=== PATIENT | male | born 1995 | race Caucasian/White ===

== ENCOUNTER 2016-12-20 14:21 | Inpatient (IN) ==
[2016-12-20] MEDS ORDERED: Tdap (ADACEL) Vaccine 0.5 ML IM ONE (14:39)
--- NOTE | 2016-12-20 14:45 | Emergency Department Note ---
Disposition Clinical Impression: Heroin abuse, Weakness of left leg, Acute kidney injury, Hyperkalemia Pneumonia Qualifiers: Pneumonia type: due to unspecified organism Laterality: left Lung location: upper lobe of lung Qualified Code(s): J18.1 - Lobar pneumonia, unspecified organism Rhabdomyolysis Qualifiers: Rhabdomyolysis type: non-traumatic Qualified Code(s): M62.82 - Rhabdomyolysis Disposition: Admitted As Inpatient Condition: Good Referrals: NONE,PCP [Primary Care Provider] - Forms: Work/School Release, ED Satisfaction Letter Time of Disposition: 17:39 Extremity Problem HPI - General Chief complaint: ED Extremity Problem,Nontraumatic Stated complaint: LEFT LEG NUMBNESS Time Seen by Provider: 12/20/16 14:28 Source: patient Limitations: no limitations Nursing Notes Reviewed: Yes Vital Signs Reviewed: Yes - History of Present Illness HPI Narrative: 21-year-old male history of IV drug abuse presents to the ED for left leg numbness. She reports earlier today 5 AM [place]. He passed out and just recently woke up at 1300. He was unable to walk and reports left leg weakness and numbness. He denies any back pain. Denies any recent fever, illness, chest pain or shortness of breath. He reports headache. No neck pain. Denies any about pain, nausea or vomiting. No obvious signs of abscess to the right arm. Concern for epidural abscess. Will get a MRI of the lumbar spine. Also get basic labs, EKG, chest x-ray, CT of the head as well as a CPK due to his unknown downtime. Patients in agreement with this plan. Pt Subjective Complaint: extremity pain Pain Scale: 6 - Related Data Allergies Allergy/AdvReac Type Severity Reaction Status Date / Time cephalexin [From Keflex] Allergy Hives Verified 12/20/16 17:03 Cyclobenzaprine Allergy Hives Verified 12/20/16 15:02 [From Flexeril] All systems ED: reviewed and negative except as stated. Review of Systems: As Per HPI Constitutional: Denies: fever, chills Cardiovascular: Denies: chest pain, dyspnea on exertion Respiratory: Denies: cough, dyspnea Gastrointestinal: Denies: abdominal pain, nausea, vomiting Genitourinary: Denies: urgency, dysuria Musculoskeletal: Denies: back pain, neck pain Integumentary: Reports: abrasion, lesions. Denies: rash Neurological: Reports: weakness, numbness, paresthesias, abnormal gait. Denies : headache Past Medical History - Past Medical History Attestation: Yes The following information was validated with the patient. Source: patient Medical history: Reports: no medical history Psychiatric history: Reports: no psych history - Social History Smoking Status: Current every day smoker Smokeless Tobacco Status: No Alcohol use: Reports: none Drug use: Reports: opiates, methamphetamine, IV Drug Use Physical Exam - General Limitations: no limitations General appearance: alert, in no apparent distress, other (wet clothes) - Head Head exam: normocephalic, other (left bruised swollen lip, small abrasion to left perioral) - Eye Eye exam: Present: normal appearance, PERRL, EOMI - ENT ENT exam: normal exam, normal oropharynx, mucous membranes moist - Expanded ENT Exam Nose/Mouth: 1 - swelling 2 - abrasion - Neck Neck exam: Present: normal inspection, full ROM, trachea midline. Absent: tenderness - Expanded Neck Exam Neck exam focused ED: Absent: midline tenderness - Chest Chest inspection: Present: normal inspection, symmetric chest wall rise - Respiratory Respiratory exam: Present: normal lung sounds bilaterally. Absent: respiratory distress, wheezes - Cardiovascular Cardiovascular exam: Present: regular rate, normal rhythm, tachycardia, normal heart sounds. Absent: systolic murmur, diastolic murmur - Abdominal Exam Abdominal exam: Present: soft, Non-Tender, normal bowel sounds. Absent: tenderness, distention, guarding, rebound, rigidity - Expanded Upper Extremity Exam Shoulder exam: Present: normal inspection, full ROM Arm exam: Present: normal inspection, full ROM Elbow exam: Present: normal inspection, full ROM Forearm/Wrist exam: Present: normal inspection, full ROM Hand exam: Present: normal inspection, full ROM Vascular exam: Normal: capillary refill, radial pulse - Expanded Lower Extremity Exam Hip/Pelvis exam: Present: normal inspection, full ROM, pelvis stable. Absent: external rotation, internal rotation Upper leg exam: Present: normal inspection Knee exam: Present: normal inspection, other (no fibular head tenderness). Absent: tenderness, abrasion, deformity Lower leg exam: Present: normal inspection Ankle exam: Present: normal inspection Foot/toe exam: Present: normal inspection Neurovascular/Tendon exam: Present: normal capillary refill, motor deficit (left ), sensory deficit (left lower leg). Absent: pulse deficit, tendon deficit - Back Exam Back exam: Present: normal inspection, full ROM. Absent: tenderness, vertebral tenderness - Neurological Exam Neurological exam: Present: alert, oriented X3 - Expanded Neurological Exam Motor strength - LLE: 0/5 Motor strength - RLE: 5/5 - Psychiatric Psychiatric exam: Present: normal affect, normal mood - Skin Skin exam: Present: warm, dry, intact, normal color Course - Reevaluation(s) Reevaluation #1: Patient has some subjective sensory deficit on the left lower extremity. He is unable to passively moved his left leg. No midline back tenderness. History of IV drug use most recent 5 AM. Concern for abscess MRI ordered. EKG shows some right heart strain with right bundle branch block. No old EKG available. Concern for septic emboli due to his history. CTA of the chest was ordered. He was found down for unknown amount of time. CPK is still pending. He has a leukocytosis as well as significant acute kidney injury. Concern for likely dehydration. His potassium is also elevated at 6. There does not appear to be any acute EKG changes toward calcium at this time. We will give him 1 amp of dextrose and 10 units insulin as well as aggressive fluid hydration. He will likely need admission. Awaiting imaging at this time. Tetanus Boostrix has been updated here, he has been started on Ancef. Time: 16:13 Reevaluation #2: Chest x-ray and CT of the chest reveals possible left upper lobe pneumonia. No evidence of septic emboli or pulmonary embolism. Placed on Levaquin for coverage. CT of the head does not show any acute intracranial abnormality or hemorrhage. Patient is currently getting his lumbar MRI scan for left leg weakness and numbness. Still awaiting his CPK level. He is being aggressively fluid hydrated for presumptive rhabdo due to JACQUELYN. Time: 16:55 Reevaluation #3: Patient is regaining function in sensation to the left lower leg. He is able to flex at the hip and been at the knee however continues a reports of numbness and tingling in the left lower leg. Suspect this is likely a nerve palsy. Patient states it feels like as if he slept on his arm for a long time but only in the leg. CPK >74931. Will treat him for suspected rhabdomyolysis and acute kidney injury with hyperkalemia no EKG changes. He has been treated with 2 L fluid bolus and will continue maintenance of 150 cc/hr. he has also received dextrose and insulin. Time: 17:44 - Consultations Consultation #1: Spoke with on-call hospitalist kodi Patino to admit for pneumonia, left leg weakness, rhabdomyolysis, JACQUELYN. No further orders at this time Time: 17:42 Vital Signs Temperature 98.1 F 12/20/16 14:23 Pulse Rate 128 12/20/16 14:23 Respiratory Rate 20 12/20/16 14:23 Blood Pressure 101/59 12/20/16 14:23 O2 Sat by Pulse Oximetry 96 12/20/16 14:23 Temperature 98.1 F 12/20/16 14:23 Pulse Rate 124 12/20/16 17:23 Respiratory Rate 20 12/20/16 17:23 Blood Pressure 102/74 12/20/16 17:23 O2 Sat by Pulse Oximetry 98 12/20/16 17:23 Oxygen Delivery Oxygen Delivery Room Air Extremity Problem, Nontraumati - Medical Records Medical records reviewed: Yes I reviewed the patient's medical records. - Lab Data Lab results reviewed: Yes I reviewed the patient's lab results. Result diagrams: 12/20/16 14:53 12/20/16 14:53 Lab Results 12/20/16 12/20/16 12/20/16 Range/Units 14:53 14:53 14:53 WBC 17.4 H (4.3-11.1) K/mcL RBC 5.54 H (4.19-5.50) M/mcL Hgb 15.5 (12.9-16.9) g/dL Hct 47.8 (37.5-50.1) % MCV 86.3 (83.0-100.0) fL MCH 28.0 (28.0-33.3) pg MCHC 32.4 (31.6-35.5) g/dL RDW 13.0 (11.5-14.5) % Plt Count 255 (140-400) K/mcL MPV 10.9 (9.4-12.4) fL Immature Gran % 1.0 (0-4) % Seg Neutrophils % 79.5 % Lymphocytes % 5.9 % Monocytes % 13.4 % Eosinophils % 0.0 % Basophils % 0.2 % Neutrophils # 13.8 H (1.6-8.9) K/mcL Lymphocytes # 1.0 (0.6-4.6) K/mcL Monocytes # 2.3 H (0.0-1.3) K/mcL Eosinophils # 0.0 (0.0-0.6) K/mcL Basophils # 0.0 (0.0-0.2) K/mcL Sodium 138 (136-145) mEq/L Potassium 6.0 H (3.5-4.5) mEq/L Chloride 105 (98-109) mEq/L Carbon Dioxide 22 (19-29) mEq/L BUN 21 (8-26) mg/dL Creatinine 2.04 H (0.72-1.25) mg/dL Est GFR ( Amer) 50 L (> 60) Est GFR (Non-Af Amer) 41 L (> 60) BUN/Creatinine Ratio 10 (6-26) Glucose 98 (70-99) mg/dL Calculated Osmolality 289 (280-300) Calcium 9.1 (8.6-10.8) mg/dL Creatine Kinase 88875 H (30-200) Units/L B-Natriuretic Peptide 79 (0-100) pg/mL - Radiology Data Radiology results reviewed: Yes I reviewed the patient's radiology results. Head CT 12/20/16 14:29 IMPRESSION: No acute intracranial abnormality. Left maxillary sinus mucous retention cyst. D/ / Chris Muller MD / Chris Muller MD Interpreting Provider: Chris Muller MD Chest X-Ray 12/20/16 14:31 IMPRESSION: Haziness of the left hilar region which may represent edema or atypical infection. Follow-up to resolution is suggested. D/ / 12/20/2016 14:59:14 Amisha Negron MD / earno Interpreting Provider: Amisha Negron MD Chest CTA 12/20/16 14:59 IMPRESSION: No evidence of a pulmonary embolus. No definite evidence of septic embolus. Left upper lobe airspace disease most consistent with pneumonia. Follow-up to complete clearing is recommended. D/ / Chris Muller MD / Chris Muller MD Interpreting Provider: Chris Muller MD Lumbar Spine MRI 12/20/16 14:28 IMPRESSION: Mild degenerative disc disease as described above. No spinal canal narrowing. Foraminal narrowing, minimal at right L5-S1. No evidence of abnormal epidural fluid collection or abscess. D/ / Deep Laird MD / Deep Laird MD Interpreting Provider: Deep Laird MD - EKG Data EKG attestation: Yes I reviewed and interpreted this EKG. EKG results narrative: EKG performed 1453 sinus tachycardia 133 beats per minute, there is a complete right bundle branch block QRS 92. No old EKG for comparison. Concern for right heart strain. No T wave inversion. No ST elevations or depression. No old EKG is available for comparison. This is an abnormal EKG. Critical Care Time Critical Care Time: Yes Total Critical Care Time: 60 Attestation: Greater than 60 minutes of critical care time was spent resuscitating this patient suffering from rhabdomyolysis requiring treatment of hyperkalemia. This is excluding billable procedures. Attestation Statement - Attestation Attestation: I examined this patient and my medical decision-making was reviewed with the Resident Physician. I agree with the documented findings, disposition and treatment plan as described except to the extent set forth below. In summary this is a 21-year-old male with a history of IV drug abuse is found with leg numbness in the left lower extremity after having a possible overdose last evening. He passed out on the rocks and was found trying to climb up an embankment. He has mild cut to the left cheek. He is alert and oriented at this time. He does have pain as well as weakness in the left lower extremity. MRI was obtained to rule out epidural abscess. CT scan of the brain shows no acute findings. I am concerned about rhabdomyolysis as a cause of his pain as his CPKs grossly elevated concurrently with acute kidney injury as well as hyperkalemia. Insulin and dextrose were administered. Plan to continue aggressive hydration and admitted to the hospital for further evaluation and workup of rhabdo.
[2016-12-20] MEDS ORDERED: ceFAZolin 1,000 MG in D5% in Water (Mini-Bag+) 100 ML IVPB ONE (14:59)
[2016-12-20 15:15] LABS: Basophils % 0.2 %; Hematocrit 47.8 % (37.5-50.1); Hemoglobin 15.5 g/dL (12.9-16.9); Lymphocytes % 5.9 %; Mean Corpuscular HGB Conc 32.4 g/dL (31.6-35.5); Mean Corpuscular Volume 86.3 fL (83.0-100.0); Mean Platelet Volume 10.9 fL (9.4-12.4); Monocytes # 2.3 K/mcL (0.0-1.3); Monocytes % 13.4 %; Neutrophils # 13.8 K/mcL (1.6-8.9); Platelet Count 255 K/mcL (140-400); Red Blood Count 5.54 M/mcL (4.19-5.50); Segmented Neutrophils % 79.5 %
[2016-12-20 15:17] LABS: Calcium 9.1 mg/dL (8.6-10.8)
[2016-12-20] MEDS ORDERED: 0.9 % Sodium Chloride 1,000 ML IVC ONE ×2 (15:34→16:57)
[2016-12-20] MEDS ORDERED: *HR* Dextrose 50 % in Water (Syg) 50 ML SYRINGE IVP ONE (15:35)
[2016-12-20] MEDS ORDERED: Insulin Regular, Human 100 UNIT/ML IV ONE (15:35)
[2016-12-20] MEDS ORDERED: Levofloxacin 750 MG/150 ML 750 MG/150 ML BAG IVPB ONE (16:55)
[2016-12-20] MEDS ORDERED: 0.9 % Sodium Chloride 1,000 ML IVC SCH ×2 (17:30→23:45)
[2016-12-20] MEDS ORDERED: Ondansetron 4 MG/2 ML VIAL IVP PRN (20:04)
[2016-12-20] MEDS ORDERED: Acetaminophen/Butalbital/CaffeineTABLET PO PRN (20:20)
[2016-12-20] MEDS ORDERED: Naloxone 0.4 MG/ML INJ IVP PRN (23:53)
--- NOTE | 2016-12-21 00:06 | Internal Med History&Physical ---
Date of Encounter: 12/21/16 Time of Encounter: 22:00 Assessment and Plan (1) Rhabdomyolysis Current visit: Yes Status: Acute recheck K, IVF 200cc/hr, trend CPK EKG on admission abnormal. Has RBBB (no prior to compare). Check EKG in a.m. Trend trop (may be artificially elevated due to rhabdo Qualifiers: Rhabdomyolysis type: non-traumatic Qualified Code(s): M62.82 - Rhabdomyolysis (2) Pneumonia Current visit: Yes Status: Acute IV levaquin for now Qualifiers: Pneumonia type: due to unspecified organism Laterality: left Lung location: upper lobe of lung Qualified Code(s): J18.1 - Lobar pneumonia, unspecified organism (3) Acute kidney injury Current visit: Yes Status: Acute IVF. trend Cr (4) Hyperkalemia Current visit: Yes Status: Acute IVF, trend K, tele (5) Heroin abuse Current visit: Yes Status: Acute education. social work consult Internal Medicine - H&P: HPI Chief complaint: overdose, leg pain History of present illness: Mr. Pastor is a 21 year old male who overdosed on heroin who presents with rhabdomyolysis, hyperK, JACQUELYN, PNA. He told me that he does not take heroin regularly or is addicted. He was off for as while since he was in present. At 5 a.m, he took some IV heroin [place] the bridge. He later woke up with b/l leg pain R>L with altered sensation - he could not stand nor could he walk. He called his GF who help get him into the hospital. In the ED, CXR with NIKI PNA - probably aspiration. But also noted rhadomyolysis, JACQUELYN and hyperK Past Med Surg Social Fam HX - Past Medical History Medical history: no medical history Psychiatric history: no psych history - Social History Smoking Status: Current every day smoker Smokeless Tobacco Status: No Alcohol use: none Drug use: opiates, methamphetamine, IV Drug Use - Additional Family History Additional family history: Hypertension Internal Medicine - H&P: Meds No Known Home Drugs 12/20/16 [History] 3 Allergy/AdvReac Type Severity Reaction Status Date / Time cephalexin [From Keflex] Allergy Hives Verified 12/20/16 17:03 Cyclobenzaprine Allergy Hives Verified 12/20/16 15:02 [From Flexeril] All Systems PM: A 10-system review of systems was performed and is negative for pertinent findings except as documented above in the HPI. Review of systems: ROS 14 point review of systems reviewed as best as possible given presentation. Pertinent positive or negative as per HPI or otherwise reviewed as negative - Constitutional Vitals: Temp Pulse Resp BP Pulse Ox 97.8 F 122 17 130/94 96 12/20/16 20:17 12/20/16 20:17 12/20/16 20:17 12/20/16 20:12/20/16 20:17 Exam: General - AAO x 3 Psych - Appropriate affect/speech. No agitation Eyes - MARLEN. Eye lids intact. No scleral icterus Neuro - R > L leg pain. Sensation mildly altered but improving. No overt WIRE PULLER deficits Heart - Sinus. RRR. S1 and S2 present. No added HS/murmurs appreciated. No elevated JVD appreciated. No calf swellings/erythema Lung - Adequate air entry b/l, No crackes/wheezes appreciated GI - Soft, non-tender. No hepatosplenomegaly/ascites. BS+ - No CVA/suprapubic tenderness or palpable bladder distension Skin - tattoos MSK - Joints with normal ROM. No joint swellings Internal Med - H&P Results - Labs CBC & Chem 7: 12/20/16 14:53 12/20/16 14:53
[2016-12-21 01:55] LABS: Basophils % 0.3 %; Eosinophils % 0.2 %; Hematocrit 45.3 % (37.5-50.1); Hemoglobin 15.5 g/dL (12.9-16.9); Immature Granulocytes % 0.5 % (0-4); Lymphocytes # 2.4 K/mcL (0.6-4.6); Lymphocytes % 18.9 %; Mean Corpuscular HGB Conc 34.2 g/dL (31.6-35.5); Mean Corpuscular Hemoglobin 29.1 pg (28.0-33.3); Mean Platelet Volume 10.9 fL (9.4-12.4); Monocytes % 15.4 %; Neutrophils # 8.3 K/mcL (1.6-8.9); Platelet Count 197 K/mcL (140-400); Red Blood Count 5.33 M/mcL (4.19-5.50); Red Cell Distribution Width 13.2 % (11.5-14.5); Segmented Neutrophils % 64.7 %
[2016-12-21 02:09] LABS: Alanine Aminotransferase 124 Units/L (0-55); Albumin 3.2 g/dL (3.5-5.0); Albumin/Globulin Ratio 0.9 (1.1-2.2); Alkaline Phosphatase 64 Units/L (38-126); Aspartate Amino Transferase 430 Units/L (5-34); BUN/Creatinine Ratio 13 (6-26); Bilirubin,Total 0.4 mg/dL (0.2-1.2); Blood Urea Nitrogen 16 mg/dL (8-26); Calcium 8.8 mg/dL (8.6-10.8); Carbon Dioxide 23 mEq/L (19-29); Chloride 107 mEq/L (98-109); Globulin 3.4 g/dL (2.4-3.5); Glucose 92 mg/dL (70-99); Osmolality,Calculated 287 (280-300); Phosphorous 4.3 mg/dL (2.3-4.7); Sodium 138 mEq/L (136-145); Total Protein 6.6 g/dL (6.0-8.3); eGFR For African Americans > 60 (> 60); eGFR For Non-African Americans > 60 (> 60)
[2016-12-21 02:11] LABS: Potassium 4.7 mEq/L (3.5-4.5)
[2016-12-21 02:38] LABS: Creatine Kinase 35132 Units/L (30-200)
[2016-12-21] MEDS ORDERED: *HR* Heparin 5,000 UNIT/ML VIAL SQ SCH (06:00)
[2016-12-21] MEDS ORDERED: *HR* LORazepam 0.5 MG TABLET PO PRN (08:45)
--- NOTE | 2016-12-21 08:57 | Internal Med Progress Note ---
Date of Encounter: 12/21/16 Time of Encounter: 08:53 - Assessment and plan (1) Rhabdomyolysis Current Visit: Yes Status: Acute Assessment and plan: Severe rhabdomyolysis Worsening CK total concern for possible compartment syndrome cont aggressive IV hydration Cont trending on CK total Ordered stat CT of Leg / Pelvis Spoke to Ortho Dr. Bernabe who is coming to see pt now placed him on NPO - if surgery needed IV analgesics Cont close monitoring Qualifiers: Rhabdomyolysis type: non-traumatic Qualified Code(s): M62.82 - Rhabdomyolysis (2) Compartment syndrome of buttock Current Visit: Yes Status: Acute Assessment and plan: suspecting ordered imaging studies Ortho consulted (3) Compartment syndrome of left lower extremity Current Visit: Yes Status: Acute Qualifiers: Qualified Code(s): T79.A22A - Traumatic compartment syndrome of left lower extremity, initial encounter (4) IV drug abuse Current Visit: Yes Status: Acute Assessment and plan: Counseled to quit Pt stated that was the first time he did IV drugs will get 2 D Echo Waiting on UDS results on Ativan PRN for withdrawal symptoms (5) Heroin abuse Current Visit: Yes Status: Acute (6) Pneumonia Current Visit: Yes Status: Acute Assessment and plan: Mostly aspirational cont Levolfoxacin..also added Zosyn for anaerobic coverage and broad spectrum Qualifiers: Pneumonia type: due to unspecified organism Laterality: left Lung location: upper lobe of lung Qualified Code(s): J18.1 - Lobar pneumonia, unspecified organism (7) Left facial swelling Current Visit: Yes Status: Acute Assessment and plan: Concern for abscess will check CT of Face cont IV abx Zosyn and Levofloxacin NPO for now (8) Elevated troponin Current Visit: Yes Status: Acute Assessment and plan: Due to demand ischemia No CP EKG - slightly abnormal will get 2 D Echo Troponin started trending down (9) Acute kidney injury Current Visit: Yes Status: Acute Assessment and plan: Improving cont IV hydration (10) Hyperkalemia Current Visit: Yes Status: Acute Assessment and plan: Improving due to Rhabdo / JACQUELYN - Subjective Interval history: This is a 21 y/o M with known h/o IV Heroin abuse, who brought into ER y/d afternoon with heroin overdose and Left leg pain. Pt stated that he injected IV heroin to her Rt arm y/d morning around 5.00 AM, he was out side underneath a bridge when did that. Suddenly he blacked out after injection, when he woke up it was 1.30 PM. He called his GF who brought him into ER. Now he still c/o worsening pain in her Left thigh and gluteus region, unable to feel anything over that area with severe numbness. Denied any back pain. No fever / chills. He also had Left facial swelling. - Constitutional Vitals: Temp Pulse Resp BP Pulse Ox 97.7 F 107 16 105/82 100 12/21/16 07:49 12/21/16 07:49 12/21/16 07:49 12/21/16 07:49 12/21/16 07:49 General appearance: Present: mild distress (with pain), A&O X 3 - Head Additional comments: huge swelling over Left cheek region noticed. - Respiratory Respiratory exam: Present: decreased breath sounds, wheezes. Absent: rales, respiratory distress, rhonchi - Cardiovascular Cardiovascular exam: Present: RRR, +S1, +S2. Absent: diastolic murmur, gallop, rubs, systolic murmur - GI/Abdominal GI/Abdominal exam: Present: normal bowel sounds, soft. Absent: rebound, rigid, tenderness - Extremities Exam Additional comments: Very firm, induration with swelling and tenderness over Left thigh medial and anterior compartment region. Moderate swelling and firm, induration over Left gluteal region. - Neurological Exam Neurological exam: Present: alert, oriented X3 - Psychiatric Psychiatric exam: Present: normal affect, normal mood Internal Medicine: Result - Labs CBC & Chem 7: 12/21/16 01:46 12/21/16 01:46 Labs: Short CBC 12/21/16 Range/Units 01:46 WBC 12.9 H (4.3-11.1) K/mcL Hgb 15.5 (12.9-16.9) g/dL Hct 45.3 (37.5-50.1) % Plt Count 197 (140-400) K/mcL Neutrophils # 8.3 (1.6-8.9) K/mcL BMP 12/21/16 12/21/16 01:46 01:46 Sodium 138 Potassium 4.6 H 4.7 H D Chloride 107 Carbon Dioxide 23 BUN 16 Creatinine 1.22 Glucose 92 Calcium 8.8 Cardiac Enzymes 12/21/16 12/21/16 Range/Units 01:46 05:23 Troponin I 0.31 H* 0.27 H* (0-0.03) ng/mL Liver Function 12/21/16 Range/Units 01:46 Total Bilirubin 0.4 (0.2-1.2) mg/dL AST 430 H (5-34) Units/L ALT 124 H (0-55) Units/L Alkaline Phosphatase 64 (38-126) Units/L Albumin 3.2 L (3.5-5.0) g/dL Consult Discharge Plan - Plan Referrals: NONE,PCP [Primary Care Provider] -
[2016-12-21] MEDS ORDERED: Levofloxacin 750 MG/150 ML 750 MG/150 ML BAG IVPB SCH (09:00)
[2016-12-21] MEDS ORDERED: 0.9 % Sodium Chloride 1,000 ML IVC SCH (10:07)
[2016-12-21] MEDS: *HR* Morphine 2 MG/ML SYRINGE IVP PRN ×2 (10:49→15:54)
--- NOTE | 2016-12-21 11:11 | Orthopedic Consult Note ---
Date of Encounter: 12/22/16 Time of Encounter: 10:45 Assessment and Plan (1) Weakness of left leg Status: Acute Update: MR/MR hip LT wo con IMPRESSION: Diffuse muscle edema involving multiple muscles/ muscle groups along with subcutaneous edema and intrafascial fluid about the left hemipelvis and visualized proximal left thigh as above, correlating with findings on the recent CT exam. No signal voids are seen to suggest soft tissue gas or intrafascial gas. No focal fluid collections are noted. Findings are concerning for nonspecific infectious or inflammatory myositis and fasciitis. Compartment syndrome is also consideration. Findings extend intrapelvic with edema/fluid noted about the left lumbosacral plexus and sciatic nerve as well as fluid within the presacral space. Small to moderate left hip joint effusion. No findings suggestive for septic arthritis. No evidence for osteomyelitis. Tearing of the anterosuperior left acetabular labrum. Diffuse bone marrow signal changes compatible with somewhat prominent hematopoietic reconversion of bone marrow. This is a nonspecific finding and can be seen with obese patients and in smokers, as well as in the setting of anemia, amongst other etiologies. Clinical and laboratory correlation suggested Case discussed in depth with . also saw and evaluated this patient. All studies reviewed. Vascular surgery consulted to assess vascular status. DENISE with waveform ordered - Preliminary report for bilateral lower extremity DENISE is normal wave forms and pressures. Awaiting LLE venous doppler ordered STAT. Likely sciatic nerve palsy secondary to edema and fluid collection along buttock , hip and thigh - discussed with neurology as well. Compartment syndrome to anterior thigh unlikely based off my exam, along with 's exam - gluteal edema and MRI findings of hip are still concerning due to the significant amount of edema, along with elevated CPK and patient's current condition. Recommended transfer to [facility] secondary to significant edema, elevated CPK - awaiting vascular assessment. 1600 - hospitalist called to be notified. Awaiting return call. 1645 - Contacted nurse on floor to discuss orthopedic recommendations, asked if was on the unit to discuss discharge plans. She was able to connect me. Advised hospitalist that orthopedic recommendations are for transfer to [facility] secondary to rhabdomyelsis, gluteal edema and potential fascial and muscular compromise due to edema to gluteus and Left hip/thigh based off MRI findings per 's recommendations. Hospitalist did not seem happy with our recommendation; however he said he would take care of it. (2) IV drug abuse Status: Acute (3) Pneumonia Status: Acute Qualifiers: Pneumonia type: due to unspecified organism Laterality: left Lung location: upper lobe of lung Qualified Code(s): J18.1 - Lobar pneumonia, unspecified organism (4) Rhabdomyolysis Status: Acute Qualifiers: Rhabdomyolysis type: non-traumatic Qualified Code(s): M62.82 - Rhabdomyolysis History of Present Illness Chief complaint: LEFT Lower extremity numbness and pain HPI: Mr. Pastor is a 21 year old male, admitted to [facility] 12/20/16 s/p a drug overdose on heroin - toxicity screen positive for barbituates, opioids, marijuana, and amphetamines. He states this was the first time he has ever used heroin. He woke up after an unknown period of time - possibly as great as 10 hours - and was unable to walk or move his lower extremities. He was brought to the ED by his girlfriend. Upon admission - Lumbar MRI obtained - no abnormalities noted. Leukocytosis noted, as well as rhabdomyolysis, hyperK, JACQUELYN, PNA. In the ED, CXR with NIKI PNA - probably aspiration. Orthopedics consulted to rule out compartment syndrome. CT of lower leg, pelvis reviewed by myself and . CT/CT lower leg LT wo con IMPRESSION: Extensive edema and fluid involving the left gluteal and anterior thigh musculature. Consider diffuse myositis and fasciitis. No soft tissue gas. Fluid also extends along the hamstring musculature. Correlate clinically for compartment syndrome. CT/CT pelvis wo no iv no oral IMPRESSION: Diffuse soft tissue swelling of the soft tissues of the left hip and visualized upper thigh. There is enlargement of the muscles with increased low-attenuation compatible with edema as well as fluid within the fascial and subcutaneous tissue surrounding the musculature. No evidence of subcutaneous emphysema appreciated. There appears to be involvement of several of the muscular compartments. Findings nonspecific and differential includes underlying infectious and inflammatory changes in addition to compartment syndrome. Evaluation of the vascular structures is indeterminate on noncontrast imaging and further evaluation with lower extremity duplex Doppler evaluation is recommended to evaluate for potential deep venous thrombosis. Abnormal appearance of the muscles and surrounding soft tissues concerning for the possibility of underlying infection, myositis in the correct clinical setting. Increased edema is noted in multiple compartments which could be related to underlying compartment syndrome. Please correlate clinically. Additional imaging can be performed as clinically indicated. CT/CT facial bones wo con IMPRESSION: 1. No acute maxillofacial fracture. 2. Marked left face and left neck soft tissue swelling and contusion. There is asymmetric enlargement of the left masseter muscle suggesting intramuscular hematoma. Patient continues to have altered sensation to dorsum of Left foot and great toe region. Sensation intact along more proximal leg. No calf pain. PROM intact at foot and ankle without pain. Knee PROM intact but causes pain with deep knee flexion along lateral thigh. Hip IR/ER causes increase pain. Will with inability to walk due to N/T along lower region of Left leg. Right leg has since improved during hospitalization. He admits to lateral thigh pain, along with left gluteal pain. Rates pain 10/ 10. He is able to talk with me, without difficulty. Denies SOB, CP, N/V. CPK levels elevated 12/20/16 - steady decline throughout today but remains elevated. EXAM: LLE No erythema, ecchymosis noted. Left thigh approximately 4-5cm larger than Right thigh. No pallor, Skin tone normal. Skin - warm to touch Significant tenderness to Left anterior and lateral thigh, soft to touch, minimal induration noted. Signficant left gluteal tenderness. Denies calf tenderness. ROM: PROM intact at foot and ankle without pain. No active dorsiflexion or inversion. Weakness with plantarflexion and eversion. Knee PROM intact but causes pain with deep knee flexion along lateral thigh. AROM intact but limited secondary to pain, worse with knee flexion. Hip IR/ER causes increase pain. Will with inability to walk due to N/T along lower region of Left leg NV: Dorsal pedis, posterior tibial pulses intact and similar to RLE. Weak popliteal pulse bilaterally. Decreased sensation to dorsum of foot and medial aspect of foot. Sensation intact from ankle and above to hip. Awaiting Hip MRI. Update: MR/MR hip LT wo con IMPRESSION: Diffuse muscle edema involving multiple muscles/ muscle groups along with subcutaneous edema and intrafascial fluid about the left hemipelvis and visualized proximal left thigh as above, correlating with findings on the recent CT exam. No signal voids are seen to suggest soft tissue gas or intrafascial gas. No focal fluid collections are noted. Findings are concerning for nonspecific infectious or inflammatory myositis and fasciitis. Compartment syndrome is also consideration. Findings extend intrapelvic with edema/fluid noted about the left lumbosacral plexus and sciatic nerve as well as fluid within the presacral space. Small to moderate left hip joint effusion. No findings suggestive for septic arthritis. No evidence for osteomyelitis. Tearing of the anterosuperior left acetabular labrum. Diffuse bone marrow signal changes compatible with somewhat prominent hematopoietic reconversion of bone marrow. This is a nonspecific finding and can be seen with obese patients and in smokers, as well as in the setting of anemia, amongst other etiologies. Clinical and laboratory correlation suggested. Awaiting Venous Doppler Awaiting DENISE with waveform. Past Med Surg Social Fam HX - Past Medical History Medical history: no medical history Psychiatric history: no psych history - Social History Smoking Status: Current every day smoker Smokeless Tobacco Status: No Alcohol use: none Drug use: opiates, methamphetamine, IV Drug Use Medications and Allergies No Known Home Drugs 12/20/16 [History] 3 Allergy/AdvReac Type Severity Reaction Status Date / Time cephalexin [From Keflex] Allergy Hives Verified 12/20/16 17:03 Cyclobenzaprine Allergy Hives Verified 12/20/16 15:02 [From Flexeril] All Systems Reviewed: A 10-system review of systems was performed and is negative for pertinent findings except as documented above in the HPI. - Constitutional Constitutional: as per HPI - Cardiovascular Cardiovascular: leg edema, no chest pain, no syncope - Respiratory Respiratory: no cough, no dyspnea on exertion - Musculoskeletal Musculoskeletal: as per HPI Physical Exam - Constitutional Vitals: Temp Pulse Resp BP Pulse Ox 97.7 F 99 16 136/87 97 12/21/16 07:49 12/21/16 10:56 12/21/16 10:56 12/21/16 10:56 12/21/16 10:56 SEE HPI FOR EXAM notes* Results - Labs Result Diagrams: 12/21/16 01:46 12/21/16 01:46 Labs: Abnormal lab results WBC 12.9 K/mcL (4.3-11.1) H 12/21/16 01:46 Monocytes # 2.0 K/mcL (0.0-1.3) H 12/21/16 01:46 Potassium 4.7 mEq/L (3.5-4.5) H D 12/21/16 01:46 AST 430 Units/L (5-34) H 12/21/16 01:46 ALT 124 Units/L (0-55) H 12/21/16 01:46 Creatine Kinase 83405 Units/L (30-200) H D 12/21/16 01:46 Troponin I 0.27 ng/mL (0-0.03) H* 12/21/16 05:23 Albumin 3.2 g/dL (3.5-5.0) L 12/21/16 01:46 Albumin/Globulin Ratio 0.9 (1.1-2.2) L 12/21/16 01:46 H & H 12/21/16 Range/Units 01:46 Hgb 15.5 (12.9-16.9) g/dL Hct 45.3 (37.5-50.1) % Consult Discharge Plan - Plan Referrals: NONE,PCP [Primary Care Provider] -
--- NOTE | 2016-12-21 14:49 | Electrocardiograph Report ---
[place] [id number] Test Date: 2016-12-20 Pat Name: Abiodun Pastor Department: 104 Room: 2N4 Gender: M Form Drafter: : 1995 Requested By: Jesús Flores Order Number: [id number] Reading MD: Vasquez Hdez MD Measurements Intervals [place] Rate: 133 P: 72 UT: 144 QRS: 95 QRSD: 92 T: 70 QT: 276 QTc: 354 Interpretive Statements SINUS TACHYCARDIA BORDERLINE RIGHT AXIS DEVIATION INCOMPLETE RIGHT BUNDLE BRANCH BLOCK Electronically Signed On 12-21-2016 14:47:32 EDT by Vasquez Hdez MD
[2016-12-21 14:56] LABS: Amphetamine Screen,Urine Positive ng/mL (Cutoff=1000); Barbiturate Screen,Urine Positive ng/mL (Cutoff=200); Benzodiazepines Screen,Urine Negative ng/mL (Cutoff=200); Cannabinoid Screen,Urine Positive ng/mL (Cutoff = 50); Cocaine Screen,Urine Negative ng/mL (Cutoff= 300); Opiate Screen,Urine Positive ng/mL (Cutoff=300); Phencyclidine Screen,Urine Negative ng/mL (Cutoff=25)
[2016-12-21 15:45] VITALS: BP 152/103
[2016-12-21] MEDS ORDERED: Piperacillin/Tazobactam 3.375 GM in D5% in Water (Mini-Bag+) 100 ML IVPB SCH (16:00)
--- NOTE | 2016-12-21 17:50 | Event Note ---
Date of Encounter: 12/21/16 Time of Encounter: 16:[address] Bernabe's BLOOD OR BLOOD BANK TECHNICIAN called me around 4.15 PM to discuss about the pt's care. She did mention, Pt's leg and gluteal edema does not look like compartment syndrome, however there is still concern for compartment syndrome, but Dr. Bernabe does not do compartment syndrome surgery and he wanted to transfer the pt to tertiary care center. I called [facility][1] transfer center right away. They did accept the pt to flown out to [facility]. They trauma team is waiting for him. So will d/c him to [facility].
--- NOTE | 2016-12-21 17:51 | Discharge Summary ---
Date of Encounter: 12/21/16 Time of Encounter: 17:51 - Discharge Diagnosis (1) Rhabdomyolysis Priority: Primary Status: Acute Qualifiers: Rhabdomyolysis type: non-traumatic Qualified Code(s): M62.82 - Rhabdomyolysis (2) Compartment syndrome of buttock Priority: Primary Status: Acute (3) Compartment syndrome of left lower extremity Priority: Primary Status: Acute Qualifiers: Encounter type: initial encounter Qualified Code(s): T79.A22A - Traumatic compartment syndrome of left lower extremity, initial encounter (4) IV drug abuse Priority: Primary Status: Acute (5) Heroin abuse Priority: Secondary Status: Acute (6) Pneumonia Priority: Secondary Status: Acute Qualifiers: Pneumonia type: aspiration pneumonia Aspiration pneumonia type: unspecified Laterality: left Lung location: upper lobe of lung Qualified Code(s): J69.0 - Pneumonitis due to inhalation of food and vomit (7) Left facial swelling Priority: Secondary Status: Acute (8) Elevated troponin Priority: Secondary Status: Acute (9) Acute kidney injury Priority: Secondary Status: Acute (10) Hyperkalemia Priority: Secondary Status: Acute - Discharge Medications Home Medications: No Known Home Drugs 12/20/16 [History] Allergies/Adverse Reactions: 3 Allergy/AdvReac Type Severity Reaction Status Date / Time cephalexin [From Keflex] Allergy Hives Verified 12/20/16 17:03 Cyclobenzaprine Allergy Hives Verified 12/20/16 15:02 [From Flexeril] Procedures/tests Complete & Pending: Procedures Performed prior 72 hours Category Date Time Status CT 3D reconstruction [CT] Routine Cat Scan 12/21/[address] facial bones wo con [CT] Stat Cat Scan 12/21/16 08:[address] lower leg LT wo con [CT] Stat Cat Scan 12/21/16 08:[address] pelvis wo no iv no oral [CT] Stat Cat Scan 12/21/16 08:39 Completed MR hip LT wo con [MR] Stat MRI 12/21/16 11:12 Draft EKG [ECG 12 lead ECG] [ECG] AM 0600 Y 12/21/16 06:00 Ordered EV ankle brachial index Stat Y 12/21/16 11:12 Completed EV echocardiogram Routine Y 12/21/16 09:11 Completed Venous Doppler [EV venous imaging LE LT] Stat Y 12/21/16 15:37 Ordered Date of admission: 12/20/16 18:07 Primary care physician: PCP NONE Consults: 12/20/16 20:59 Consult to Nutrition [CONS] Routine Comment: Consulting Provider: NUTRITION Reason for Dietary Consult: MST Score 12/21/16 00:15 Consult to Furnace Clerk [CONS] Routine Reason for SW Consult: heroin abuse 12/21/16 09:03 Consult to Orthopedic Surgery [CONS] Stat Consulting Provider: Laith Bernabe Reason for Consult: Acute Left gluteal / Thigh pain - possible compartment syndrome Call Completed: Yes - Patient Status Disposition: Transfer Other Condition: Critical - Discharge Instructions Follow Up With: NONE,PCP [Primary Care Provider] - Hospital course: Mr. Pastor is a 21 y/o M with known h/o IV Heroin abuse, who brought into ER y/d afternoon with heroin overdose and Left leg pain. Pt stated that he injected IV heroin to her Rt arm y/d morning around 5.00 AM, he was out side underneath a bridge when did that. Suddenly he blacked out after injection, when he woke up it was 1.30 PM. He called his GF who brought him into ER. Pt got admitted here for his worsening Left leg pain and severe rhabdomyolysis. When I examined the pt this morning around 9.00 he did have very faint pulse in left leg distally, severe tenderness and induration , firm to otuch noticed in anterior and medial Lt thigh region as well as his Left gluteal region. I was concerned for possible compartment syndrome given his clinical presentation and worsened CK total. We continued IV hydration and started trending on his CK total. I did sent for stat CT of Left leg and Pelvis which showed extensive edema and fluid involving Left gluteal and anterior thigh musculature correlated with compartment syndrome. I did talk t Ortho Dr. Bernabe's SF[employer] ARCHITECT even before I had Ct results. They assessed the pt and wanted vascular surgery eval also requested for MRI of Pelvis. MRI was done later which came back as diffuse muscle edema involving multiple muscles / muscle groups along with SQ edema and intrafascial fluid left yovanny pelvis and left thigh compatible with compartment syndrome. Dr. Bernabe's [facility] ARCHITECT called me around 4.[address] Bernabe does not do compartment syndrome and he recommend to transfer the pt to tertiary care center for further higher level of care. I did talk to [facility] transfer center right away. They did accept the pt to flown out to [facility]. The trauma team is waiting for him. So will d/c him to [facility]. - Time Spent with Patient Total time spent providing and/or coordinating discharge services: - Constitutional Vitals: Temp Pulse Resp BP Pulse Ox 98.3 F 88 16 152/103 98 12/21/16 15:43 12/21/16 15:43 12/21/16 15:43 12/21/16 15:43 12/21/16 15:43 General appearance: Present: mild distress (with pain), A&O X 3 - Head Head exam: Present: atraumatic Additional comments: Left facial swelling - Respiratory Respiratory exam: Present: decreased breath sounds. Absent: rales, respiratory distress, rhonchi, wheezes - Cardiovascular Cardiovascular exam: Present: RRR, +S1, +S2. Absent: diastolic murmur, gallop, rubs, systolic murmur - Extremities Exam Additional comments: Very firm, induration with swelling and tenderness over Left thigh medial and anterior compartment region, which seems to slightly better by end of the day. Moderate swelling and firm, induration over Left gluteal region. Pulses are palpable distally posterior tibial and dorsalis pedis in Left leg - Psychiatric Psychiatric exam: Present: anxious
--- NOTE | 2016-12-23 09:56 | Arterial Study Report ---
LE Arterial Physiologic Study Patient Name:Abiodun Pastor Order Number:[id number] Procedure Date:12/21/2016 Date:1995Age:21 yrs Gender:Male Lt BP:140 / mmHg Rt.BP:143 / mmHgHeart Rate: Location:[facility] Room #: 2NE34 Lehr Stripper:Vincent Quiroga RN, RDCS Referring MD:Kasia Pickens PA-C project manager:None Reading MD:Brian Falcon MD Primary Indications:Left Lower Extremity Sensation Loss Risk Factors Yes/No Hypertension No Diabetes No Hypercholesterolemia No Smoking Current Yes Hx of TIA No Hx of CVA No Anticoagulants No Hx of CAD/PTCA No Previous Vascular Surgery No Impressions: 1) Bilateral lower extremities waveform demonstrates normal hemodynamics. 2) bilateral Ankle Brachial Index is normal. 3) Overall Impression: Arterial hemodynamics are well maintained at rest. Recommendations: Test completed on 12/21/2016 at 1:50:00 pm. Findings LE Arterial Physiologic Exam: Segmental Pressures: Right: The right posterior tibial pressure is 155 mmHg with an index of 1.08. The right dorsalis pedis pressure is 154 mmHg with an index of 1.08. Left: The left posterior tibial pressure is 155 mmHg with an index of 1.08. The left dorsalis pedis pressure is 152 mmHg with an index of 1.06. PVR: Right: The PVR waveforms are normal in the right ankle. Left: The PVR waveforms are normal in the left ankle. Prior Study: No prior study available for comparison. Segmental Pressures Side Location Pressure Index Result Right Posterior Tibial 155 1.08 Normal Right Dorsalis Pedis 154 1.08 Normal Left Posterior Tibial 155 1.08 Normal Left Dorsalis Pedis 152 1.06 Normal Ankle Brachial Index Right Systolic Diastolic DENISE Brachial 143 1.08 Dorsalis Pedis 154 1.08 Posterior Tibial 155 1.08 Left Systolic Diastolic DENISE Brachial 140 1.08 Dorsalis Pedis 152 1.06 Posterior Tibial 155 1.08 Updated by Brian Falcon MD on 12/23/2016 9:50:23 AM with Status of Final electronically signed on 12/23/2016 9:50:41 AM with status of Final
== END 2016-12-21 18:05 | disposition other institution (70) | DRG 351 ==
LOC: EMEROO 14:21 → 2NENU 18:07
PROVIDERS: ADMIT Nurse Practitioner Family; ATTEND Internal Medicine